=== PATIENT | male | born 1955 | race Caucasian/White ===

== ENCOUNTER 2023-12-04 06:00 | Day surgery (SDC) | payer MEDICARE ==
[~2023-12-04] VITALS: Ht 185.4 cm; Wt 105.5 kg
[~2023-12-04 06:00] MED LIST: LR 1,000 ML IV SCH; Ondansetron 4 MG/2 ML VIAL IV PRN
[2023-12-04] MEDS ORDERED: LIPITOR20 MG PO (06:27)
[2023-12-04] MEDS ORDERED: SYNTHROID0.1 MG/TAB PO (06:27)
[2023-12-04] MEDS ORDERED: HYZAAR 50-12.1 UDTAB PO (06:28)
[2023-12-04 06:40] VITALS: BP 142/91; PULSE 81; TEMP 97.1
[2023-12-04] MEDS ORDERED: Lidocaine PF 2% (20 MG/ML) 5 ML VIAL ONE (07:26)
[2023-12-04 08:20] VITALS: BP 123/72; PULSE 70; TEMP 97.5
[2023-12-04 08:35] VITALS: BP 126/76; PULSE 68
[2023-12-04 08:50] VITALS: BP 121/80; PULSE 64
--- NOTE | 2023-12-04 08:55 | NUR ---
0820 RETURNS TO ROOM 1 PER CART. AWAKE, ALERT. RESP UNLABORED. AMBULATES TO RECLINER WITH STANDBY ASSIST. DENIES NAUSEA OR ABD PAIN. VITAL SIGNS OBTAINED. CALL LIGHT AT SIDE. IN ROOM. DR. PEDERSEN IN ROOM TO VISIT WITH PRIOR TO PATIENT'S RETURN. 0835 TOLERATES PO JUICE WITHOUT NAUSEA 0840 DISCHARGE INSTRUCTIONS REVIEWED. PATIENT VERBALIZES UNDERSTANDING. COPY PROVIDED IN DISCHARGE FOLDER. 0850 DRESSES SELF
== END 2023-12-04 08:55 | disposition home or self-care (01) ==
LOC: SDCO 06:00
DX: Z12.11 Encounter for screening for malignant neoplasm of colon (principal); D12.3 Benign neoplasm of transverse colon; D12.5 Benign neoplasm of sigmoid colon; E03.9 Hypothyroidism, unspecified; Z79.899 Other long term (current) drug therapy
CPT/HCPCS: J2704; J7120